=== PATIENT | female | born 1955 | race Caucasian/White ===

== ENCOUNTER 2025-08-17 15:25 | Outpatient (CLI) | payer OTHER, SELFPAY ==
--- NOTE | 2025-08-17 14:00 | DI.RAD_ITS ---
Exam(s) XR WRIST LT LIMITED EXAM: XR WRIST LT LIMITED CLINICAL HISTORY: F/U FRACTURE. TECHNIQUE: 2D digital imaging was performed of the left wrist. Two images were obtained. PA and lateral views were obtained. COMPARISON: CR XR WRIST W/NAVICULAR BILAT-M2 from 08/03/2025 FINDINGS: BONES: There has been no change in alignment of the mildly displaced ulnar styloid process fracture. There is again seen a transverse fracture through the distal metaphysis of the left radius. There is slight dorsal angulation of the fracture now present. No bony destructive lesion is seen. JOINTS: The carpal bones are normally aligned. SOFT TISSUE: Soft tissue swelling of the wrist. IMPRESSION: 1. There is mild dorsal angulation of the fracture through the distal metaphysis of the left radius. 2. Mildly displaced ulnar styloid process fracture. DATA REPOSITORY: RADIATION DOSE DELIVERED:
== END 2025-08-17 15:26 | disposition home or self-care (01) ==
LOC: DIORS 15:25
PROVIDERS: PCP Nurse Practitioner Family; Visit Provider Student in an Organized Health Care Education/Training Program
DX: S62.102A Fracture of unspecified carpal bone, left wrist, initial encounter for closed fracture (principal); S52.612A Displaced fracture of left ulna styloid process, initial encounter for closed fracture
CPT/HCPCS: 73100

== ENCOUNTER 2025-08-31 15:58 | Outpatient (CLI) | payer OTHER, SELFPAY ==
--- NOTE | 2025-08-31 13:45 | DI.RAD_ITS ---
Exam(s) XR WRIST LT LIMITED EXAM: XR WRIST LT LIMITED INDICATION: F/U FRACTURE. COMPARISON: CR XR WRIST W/NAVICULAR BILAT-M2 from 08/03/2025 CR XR WRIST LT LIMITED from 08/17/2025 TECHNIQUE: 2D digital imaging was performed. Two views. FINDINGS: There is is viewed within a fiberglass cast which partially obscures visualization of the bony detail. There has is no visible change in the alignment of the distal radial fracture. The fracture of the tip of the ulnar styloid is obscured. DATA REPOSITORY: RADIATION DOSE DELIVERED:
== END 2025-08-31 15:59 | disposition home or self-care (01) ==
LOC: DIORS 15:58
PROVIDERS: PCP Nurse Practitioner Family; Visit Provider Student in an Organized Health Care Education/Training Program
DX: S52.502A Unspecified fracture of the lower end of left radius, initial encounter for closed fracture (principal)
CPT/HCPCS: 73100

== ENCOUNTER 2025-09-14 13:44 | Outpatient (CLI) | payer OTHER, SELFPAY ==
--- NOTE | 2025-09-14 10:51 | DI.RAD_ITS ---
Exam(s) XR WRIST LT LIMITED EXAM: XR WRIST LT LIMITED CLINICAL HISTORY: F/U FRACTURE. TECHNIQUE: 2D digital imaging was performed of the left wrist. Two images were obtained. PA and lateral views were obtained. COMPARISON: CR XR WRIST LT LIMITED from 08/31/2025 FINDINGS: BONES: There has been no change in alignment of the fractures involving the ulnar styloid process and the distal left radial metaphysis. No bony destructive lesion is seen. JOINTS: The carpal bones are normally aligned. SOFT TISSUE: Normal. IMPRESSION: Stable alignment of the distal radial and ulnar fractures. DATA REPOSITORY: RADIATION DOSE DELIVERED:
== END 2025-09-14 13:45 | disposition home or self-care (01) ==
LOC: DIORS 13:45
PROVIDERS: PCP Nurse Practitioner Family; Visit Provider Student in an Organized Health Care Education/Training Program
DX: S52.502A Unspecified fracture of the lower end of left radius, initial encounter for closed fracture (principal)
CPT/HCPCS: 73100